=== PATIENT | female | born 1965 | race African-American/Black ===

== ENCOUNTER → 2017-06-02 | Outpatient (CLI) | payer BC ==
--- NOTE | 2017-06-02 17:04 | WOMENS IMAGING REPORT ---
EXAM DESCRIPTION: BILAT DIAGNOSTIC MAMMO W/CAD; U/S BREAST UNILAT LIMITED COMPLETED DATE/TIME: 06/02/2017 8:29 am; 06/02/2017 9:27 am REASON FOR STUDY: BREAST LUMP; BILATERAL BREAT N63 N63.0 UNSPECIFIED LUMP IN UNSPECIFIED BREAST COMPARISON: Outside mammograms and bilateral breast ultrasound 05/17/2015 TECHNIQUE: Standard craniocaudal and mediolateral oblique views of each breast recorded using digita l acquisition. Additional left breast 90 mediolateral view and exaggerated craniocaudad view. Bilateral breast ultrasound was also performed. LIMITATIONS: None. FINDINGS: RIGHT BREAST MASSES: In the right breast laterally, there are 2 well-circumscribed nodules with smooth borders, un changed from mammograms 05/17/2015. These were shown at ultrasound today to represent intramammary l ymph nodes CALCIFICATIONS: No new or suspicious calcifications. ARCHITECTURAL DISTORTION: None. DEVELOPING DENSITY: None. ASYMMETRY: None noted. OTHER: No other significant findings. LEFT BREAST MASSES: Patient presented with a palpable nodule in the left breast upper outer quadrant. There is a well-circumscribed smooth round mammographic nodule in the upper outer quadrant, unchanged from mamm ograms 05/17/2015. This was subsequently demonstrated at ultrasound to represent an intramammary lym ph node. CALCIFICATIONS: No new or suspicious calcifications. ARCHITECTURAL DISTORTION: None. DEVELOPING DENSITY: None. ASYMMETRY: None noted. OTHER: No other significant finding. Read with the assistance of CAD: .[facility] - R2 Cenova Version 1.3 .[facility] - R2 Cenova Version 1.3 .[facility] Imaging - R2 Cenova Version 2.4 .[facility] [place] R2 Cenova Version 2.4 .[facility] - R2 Service Desk Manager Version 9.2 Bilateral breast ultrasound: On the right side, a 7 x 10 mm lymph node is present in the 9 o'clock position. A 2nd hypoechoic lym ph node is present at the 9 o'clock position, 10 x 7 mm in size. These are similar compared to 2015. On the left side in the upper outer quadrant, a 1.4 x 1 cm well-circumscribed hypoechoic lymph node i s present with mild lymph node cortical thickening. This is similar compared to 2015. Ultrasound of the right and left axilla was performed. Multiple benign-appearing lymph nodes are pre sent. IMPRESSION: Bilateral intramammary lymph nodes similar compared to 2015. Bilateral axillary lymph nodes, similar mammographically compared to 2015. No mammographic or sonographic evidence for malignancy. BREAST DENSITY: b. scattered areas of fibroglandular density. BIRAD: 2 BENIGN FINDINGS RECOMMENDATION: RECOMMENDED FOLLOW UP: Continue yearly bilateral mammographic screening. Consider b ilateral screening tomosynthesis in May 2018 SPECIFIC INTERVENTION/IMAGING/CONSULTATION RECOMMENDED:No additional intervention/ imaging/consultati on needed at this time. COMMUNICATION:The negative/benign results were communicated to the patient. COMMENT: The patient has been notified of the results by letter per MQSA requirements. Additional no tification policies are in place for contacting patient with suspicious or incomplete findings. Quality ID #[id number]: The [employer] recommends an annual screening mammogram for women aged 40 years or over. This facility utilizes a reminder system to ensure that all patients receive reminder letters, and/or direct phone calls for appointments. This includes reminders for routine scr eening mammograms, diagnostic mammograms, or other Breast Imaging Interventions when appropriate. Th is patient will be placed in the appropriate reminder system. The [employer] (ACR) has developed recommendations for screening MRI of the breast s in certain patient populations, to be used in conjunction with mammography. Breast MRI surveillanc e may be appropriate for women with more than 20% lifetime risk of developing breast cancer as deter mined by genetic testing, significant family history of the disease, or history of mantle radiation f or Hodgkins Disease. ACR Practice Guidelines 2008. TECHNICAL DOCUMENTATION: FINDING NUMBER: (1) ASSESSMENT: (1) JOB ID: [id number] [employer]- All Rights Reserved
--- NOTE | 2017-06-02 17:04 | WOMENS IMAGING REPORT ---
EXAM DESCRIPTION: BILAT DIAGNOSTIC MAMMO W/CAD; U/S BREAST UNILAT LIMITED COMPLETED DATE/TIME: 06/02/2017 8:29 am; 06/02/2017 9:27 am REASON FOR STUDY: BREAST LUMP; BILATERAL BREAT N63 N63.0 UNSPECIFIED LUMP IN UNSPECIFIED BREAST COMPARISON: Outside mammograms and bilateral breast ultrasound 05/17/2015 TECHNIQUE: Standard craniocaudal and mediolateral oblique views of each breast recorded using digita l acquisition. Additional left breast 90 mediolateral view and exaggerated craniocaudad view. Bilateral breast ultrasound was also performed. LIMITATIONS: None. FINDINGS: RIGHT BREAST MASSES: In the right breast laterally, there are 2 well-circumscribed nodules with smooth borders, un changed from mammograms 05/17/2015. These were shown at ultrasound today to represent intramammary l ymph nodes CALCIFICATIONS: No new or suspicious calcifications. ARCHITECTURAL DISTORTION: None. DEVELOPING DENSITY: None. ASYMMETRY: None noted. OTHER: No other significant findings. LEFT BREAST MASSES: Patient presented with a palpable nodule in the left breast upper outer quadrant. There is a well-circumscribed smooth round mammographic nodule in the upper outer quadrant, unchanged from mamm ograms 05/17/2015. This was subsequently demonstrated at ultrasound to represent an intramammary lym ph node. CALCIFICATIONS: No new or suspicious calcifications. ARCHITECTURAL DISTORTION: None. DEVELOPING DENSITY: None. ASYMMETRY: None noted. OTHER: No other significant finding. Read with the assistance of CAD: .[facility] - R2 Cenova Version 1.3 .[facility] Imaging - R2 Cenova Version 1.3 .[facility] Imaging - R2 Cenova Version 2.4 .[facility] - R2 Cenova Version 2.4 .[facility] - R2 Can Filling Machine Operator Version 9.2 Bilateral breast ultrasound: On the right side, a 7 x 10 mm lymph node is present in the 9 o'clock position. A 2nd hypoechoic lym ph node is present at the 9 o'clock position, 10 x 7 mm in size. These are similar compared to 2015. On the left side in the upper outer quadrant, a 1.4 x 1 cm well-circumscribed hypoechoic lymph node i s present with mild lymph node cortical thickening. This is similar compared to 2015. Ultrasound of the right and left axilla was performed. Multiple benign-appearing lymph nodes are pre sent. IMPRESSION: Bilateral intramammary lymph nodes similar compared to 2015. Bilateral axillary lymph nodes, similar mammographically compared to 2015. No mammographic or sonographic evidence for malignancy. BREAST DENSITY: b. scattered areas of fibroglandular density. BIRAD: 2 BENIGN FINDINGS RECOMMENDATION: RECOMMENDED FOLLOW UP: Continue yearly bilateral mammographic screening. Consider b ilateral screening tomosynthesis in May 2018 SPECIFIC INTERVENTION/IMAGING/CONSULTATION RECOMMENDED:No additional intervention/ imaging/consultati on needed at this time. COMMUNICATION:The negative/benign results were communicated to the patient. COMMENT: The patient has been notified of the results by letter per MQSA requirements. Additional no tification policies are in place for contacting patient with suspicious or incomplete findings. Quality ID #[id number]: The [employer] recommends an annual screening mammogram for women aged 40 years or over. This facility utilizes a reminder system to ensure that all patients receive reminder letters, and/or direct phone calls for appointments. This includes reminders for routine scr eening mammograms, diagnostic mammograms, or other Breast Imaging Interventions when appropriate. Th is patient will be placed in the appropriate reminder system. The [employer] (ACR) has developed recommendations for screening MRI of the breast s in certain patient populations, to be used in conjunction with mammography. Breast MRI surveillanc e may be appropriate for women with more than 20% lifetime risk of developing breast cancer as deter mined by genetic testing, significant family history of the disease, or history of mantle radiation f or Hodgkins Disease. ACR Practice Guidelines 2008. TECHNICAL DOCUMENTATION: FINDING NUMBER: (1) ASSESSMENT: (1) JOB ID: [id number] [employer]- All Rights Reserved
--- NOTE | 2017-06-04 22:47 | WOMENS IMAGING REPORT ---
EXAM DESCRIPTION: BILAT DIAGNOSTIC MAMMO W/CAD; U/S BREAST UNILAT LIMITED COMPLETED DATE/TIME: 06/02/2017 8:29 am; 06/02/2017 9:27 am REASON FOR STUDY: BREAST LUMP; BILATERAL BREAT N63 N63.0 UNSPECIFIED LUMP IN UNSPECIFIED BREAST COMPARISON: Outside mammograms and bilateral breast ultrasound 05/17/2015 TECHNIQUE: Standard craniocaudal and mediolateral oblique views of each breast recorded using digita l acquisition. Additional left breast 90 mediolateral view and exaggerated craniocaudad view. Bilateral breast ultrasound was also performed. LIMITATIONS: None. FINDINGS: RIGHT BREAST MASSES: In the right breast laterally, there are 2 well-circumscribed nodules with smooth borders, un changed from mammograms 05/17/2015. These were shown at ultrasound today to represent intramammary l ymph nodes CALCIFICATIONS: No new or suspicious calcifications. ARCHITECTURAL DISTORTION: None. DEVELOPING DENSITY: None. ASYMMETRY: None noted. OTHER: No other significant findings. LEFT BREAST MASSES: Patient presented with a palpable nodule in the left breast upper outer quadrant. There is a well-circumscribed smooth round mammographic nodule in the upper outer quadrant, unchanged from mamm ograms 05/17/2015. This was subsequently demonstrated at ultrasound to represent an intramammary lym ph node. CALCIFICATIONS: No new or suspicious calcifications. ARCHITECTURAL DISTORTION: None. DEVELOPING DENSITY: None. ASYMMETRY: None noted. OTHER: No other significant finding. Read with the assistance of CAD: .[facility] - R2 Cenova Version 1.3 .[facility] Imaging - R2 Cenova Version 1.3 .[facility] Imaging - R2 Cenova Version 2.4 .[facility] - R2 Cenova Version 2.4 .[facility] - R2 Curtain Roller Assembler Version 9.2 Bilateral breast ultrasound: On the right side, a 7 x 10 mm lymph node is present in the 9 o'clock position. A 2nd hypoechoic lym ph node is present at the 9 o'clock position, 10 x 7 mm in size. These are similar compared to 2015. On the left side in the upper outer quadrant, a 1.4 x 1 cm well-circumscribed hypoechoic lymph node i s present with mild lymph node cortical thickening. This is similar compared to 2015. Ultrasound of the right and left axilla was performed. Multiple benign-appearing lymph nodes are pre sent. IMPRESSION: Bilateral intramammary lymph nodes similar compared to 2015. Bilateral axillary lymph nodes, similar mammographically compared to 2015. No mammographic or sonographic evidence for malignancy. BREAST DENSITY: b. scattered areas of fibroglandular density. BIRAD: 2 BENIGN FINDINGS RECOMMENDATION: RECOMMENDED FOLLOW UP: Continue yearly bilateral mammographic screening. Consider b ilateral screening tomosynthesis in May 2018 SPECIFIC INTERVENTION/IMAGING/CONSULTATION RECOMMENDED:No additional intervention/ imaging/consultati on needed at this time. COMMUNICATION:The negative/benign results were communicated to the patient. COMMENT: The patient has been notified of the results by letter per MQSA requirements. Additional no tification policies are in place for contacting patient with suspicious or incomplete findings. Quality ID #225: The [employer] recommends an annual screening mammogram for women aged 40 years or over. This facility utilizes a reminder system to ensure that all patients receive reminder letters, and/or direct phone calls for appointments. This includes reminders for routine scr eening mammograms, diagnostic mammograms, or other Breast Imaging Interventions when appropriate. Th is patient will be placed in the appropriate reminder system. The [employer] (ACR) has developed recommendations for screening MRI of the breast s in certain patient populations, to be used in conjunction with mammography. Breast MRI surveillanc e may be appropriate for women with more than 20% lifetime risk of developing breast cancer as deter mined by genetic testing, significant family history of the disease, or history of mantle radiation f or Hodgkins Disease. ACR Practice Guidelines 2008. TECHNICAL DOCUMENTATION: FINDING NUMBER: (1) ASSESSMENT: (1) JOB ID: [id number] [employer]- All Rights Reserved
== END ==
LOC: WI 08:10
PROVIDERS: ATTEND Nurse Practitioner Family
DX: N63.21 Unspecified lump in the left breast, upper outer quadrant (principal); N63.10 Unspecified lump in the right breast, unspecified quadrant
CPT/HCPCS: 76642; G0204; 77066

== ENCOUNTER 2020-05-21 20:35 | Emergency (ER) | payer SELFPAY ==
[2020-05-21] MEDS ORDERED: ACETAMINOPHEN 325 MG TABLET PO ONE (21:18)
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
[2020-05-22] MEDS ORDERED: OXYCODONE-ACETAMINOPHEN 5-325 MG TABLET PO ONE (04:37)
[2020-05-22] MEDS ORDERED: ONDANSETRON 4 MG TAB.RAPDIS PO ONE (04:37)
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
[2020-05-22 05:41] VITALS: BP 151/83
== END 2020-05-22 05:42 | disposition home or self-care (01) ==
LOC: ER 20:35
DX: S00.83XA Contusion of other part of head, initial encounter (principal); R22.0 Localized swelling, mass and lump, head; Y04.2XXA Assault by strike against or bumped into by another person, initial encounter; E04.9 Nontoxic goiter, unspecified; E04.1 Nontoxic single thyroid nodule; I10 Essential (primary) hypertension; Z87.891 Personal history of nicotine dependence
CPT/HCPCS: 99281; 70486; S0119